=== PATIENT | female | born 1960 | race Caucasian/White ===

== ENCOUNTER 2018-10-31 09:18 | Emergency (ER) | payer OTHER ==
[~2018-10-31] VITALS: Ht 165.1 cm; Wt 86.3 kg
[2018-10-31 09:44] LABS: HEMATOCRIT 42.7 % (37.0-47.0); HEMOGLOBIN 14.8 g/dl (12.0-16.0); IMMATURE GRANULOCYTES 0.4 % (0.0-5.0); MEAN CELL VOLUME 96.6 fL CALC (80.0-100.0); MEAN CORPUSCULAR HGB 33.5 pG CALC (26.0-32.0); MEAN CORPUSCULAR HGB CONC 34.7 g/L CALC (32.0-36.0); NEUT# 4.99 thou/uL (2.00-7.15); RED BLOOD COUNT 4.42 mill/uL (4.20-5.60); RED CELL DISTRI WIDTH 12.2 % (11.5-15.5)
[2018-10-31 09:46] LABS: GFR > 60 ML/MIN (>=60 (CALC)); GFR FOR AFR.AMER. > 60 ML/MIN (>=60 (CALC))
[2018-10-31 09:54] LABS: ANION GAP 18 (6-22 (CALC)); BUN 14 mg/dL (7-17); BUN/CREATININE RATIO 25 (12-20 (CALC)); CARBON DIOXIDE 25 mmol/l (22-30); CHLORIDE 99 mmol/l (95-108); CREATININE 0.6 mg/dL (0.5-1.0); GFR > 60 ML/MIN (>=60 (CALC)); GFR FOR AFR.AMER. > 60 ML/MIN (>=60 (CALC)); POTASSIUM 4.5 mmol/l (3.5-5.1); SODIUM 137 mmol/l (137-146)
[2018-10-31] MEDS ORDERED: CYMBALTA20 MG PO (10:27)
[2018-10-31] MEDS ORDERED: ESTROGEN (10:28)
[2018-10-31] MEDS ORDERED: ASPIRIN81 MG PO (10:28)
[2018-10-31] MEDS ORDERED: CRESTOR40 MG PO (10:28)
[2018-10-31] MEDS ORDERED: MECLIZINE25 MG PO (10:57)
[2018-10-31 11:04] VITALS: BP 162/87
== END 2018-10-31 11:09 | disposition home or self-care (01) | DRG 149 ==
LOC: ED 09:18
PROVIDERS: Family Medicine
DX: R42 Dizziness and giddiness (principal); E78.5 Hyperlipidemia, unspecified
CPT/HCPCS: Q9967